=== PATIENT | female | born 1990 | race Caucasian/White ===

== ENCOUNTER 2017-05-03 10:09 | Emergency (ER) | payer OTHER, SELFPAY ==
[2017-05-03 10:10] VITALS: BP 116/50; PULSE 78; RESP 16; TEMP 36.3; O2SAT 98; BMI 34.8
--- NOTE | 2017-05-03 10:58 | ED.DCSUM_ITS ---
- ER Visit Summary Date of Service: 05/03/17 Chief Complaint: Sore throat History of Present Illness: The patient is a 27 F who has had a sore throat. Started yesterday. She states it hurts with swallowing. No nasal congestion. She has not had a cough. She denies any ear pain, fever. She took no medications for it at home. No history of strep in the past Physical Examination: Vital signs reviewed. HEENT exam reveals TMs are clear. She does have posterior oropharyngeal erythema. Neck is supple without lymphadenopathy. Heart is regular rate and rhythm. Lungs are clear. Neurologic exam normal Test Results: Strep test is negative Emergency Department Course and Treatment: Rapid strep negative. Patient will be discharged with Mucinex D. We will follow-up with PCP Treatment Plan: [] Disposition: Discharge Viral pharyngitis This note was generated with [employer] dictation software. It may contain incorrect words, spelling, and punctuation that were not noted in review of the chart prior to signing ED Disposition - Plan for ED Patient: Chief Complaint: Sore Throat Referrals: Care Physician,No Primary [Primary Care Provider] -
--- NOTE | 2017-05-03 11:19 | ED.DEP ---
ED Disposition - Plan for ED Patient: Disposition: Home or Assisted Living Chief Complaint: Sore Throat Instructions: ED Pharyngitis Viral Prescriptions: Guaifenesin/Pseudoephedrne HCl [Mucinex D ER 1,200-120 mg Tab] 1 ea PO BID #14 tab.er.[id number] Referrals: Care Physician,No Primary [Primary Care Provider] -
[2017-05-03 11:24] VITALS: PULSE 92; RESP 17; O2SAT 98
== END 2017-05-03 11:25 | disposition home or self-care (01) ==
PROVIDERS: Emergency Provider Emergency Medicine
DX: J02.8 Acute pharyngitis due to other specified organisms (principal)
CPT/HCPCS: 87880; 99282

== ENCOUNTER → 2017-09-12 16:04 | Outpatient (CLI) | payer OTHER, SELFPAY ==
[2017-09-13 08:25] LABS: Progesterone Level 5.39 ng/mL (See Comment)
== END ==
PROVIDERS: Visit Provider Obstetrics & Gynecology
DX: N91.2 Amenorrhea, unspecified (principal)
CPT/HCPCS: 36415; 84144

== ENCOUNTER 2018-02-14 10:39 | Observation (INO) | payer OTHER, SELFPAY ==
[2018-02-14 10:40] VITALS: BP 124/56; PULSE 82; RESP 16; TEMP 37; O2SAT 98; BMI 32.3
--- NOTE | 2018-02-14 11:01 | CT_ITS ---
STUDY: CT ABDOMEN AND PELVIS WITH CONTRAST REASON FOR EXAM: Female, 27 years old. Right flank and abdominal pain. RADIATION DOSAGE (If Supplied By Facility): CTDIvol = ( 11.02 ) mGy, DLP = ( 763.94 ) mGycm TECHNIQUE: Transaxial images were obtained from the dome of the diaphragm to the symphysis pubis without oral contrast. 100 ml of Isovue 300 contrast was administered. Sagittal and coronal images were reconstructed. Individualized dose optimization techniques were used for this CT. COMPARISON: None. FINDINGS: The visualized lung bases are unremarkable. The visualized portions of the heart are within normal limits. The liver is enlarged and diffusely inhomogeneous. There is a mixed low attenuating and nodular enhancing appearance of the liver see axial image 10 series 1002. There are surgical clips in the gallbladder fossa consistent with a prior cholecystectomy. Normal spleen. Normal pancreas. Normal bilateral adrenal glands. Normal right kidney. Normal left kidney. Normal visualized stomach. Normal small intestine. Normal colon. The appendix is visualized and appears normal. Normal abdominal aorta. Normal inferior vena cava. There are numerous large mesenteric lymph nodes. For example one measuring 2 x 1.4 cm on image #85 series 601. Normal urinary bladder. Uterus is of normal size. There is a endometrial fluid parents of the lower uterine segment and uterus. Normal abdominal wall. Normal osseous structures. CT/Abdomen/Pelvis WITH Contrast IMPRESSION: Abnormal enhancement of the liver with multiple areas of low attenuation and micro-nodular appearing hyperdensity. Consider underlying infiltrative hepatic process consider hepatitis. Recommend correlation with immune status. Potentially sarcoid could have this appearance. There are enlarged mesenteric lymph nodes which could be associated lymphoproliferative disease potentially mesenteric adenitis. Status post cholecystectomy No evidence of renal ureteral or bladder calculi or evidence of pyelonephritis. N.B. : The above information has been verbally conveyed by Doris Mcintosh MD to Marcos Law MD, on 02/14/2018 14:17:34 (ET). Electronically Signed: Doris Mcintosh MD at 14:10 EST Tel , Service support ,
--- NOTE | 2018-02-14 11:03 | ED.VISSUMM ---
- ER Visit Summary Date of Service: 02/14/18 Chief Complaint: [Abdominal pain] History of Present Illness: The patient is a 27 F [presents the emergency department complaint of abdominal pain that started yesterday. Patient describes the pain is right-sided and radiating to her back. Patient has had nausea. Patient states food tends to make the pain worse. Patient states that when she woke up this morning the pain was somewhat improved but after she ate breakfast had worsening pain. Patient denies any fever. Patient believes she felt hot yesterday. She denies urinary symptoms. Last menstrual period was 2 weeks ago. Patient has had her gallbladder removed.] Physical Examination: [HEENT-PERRLA, EOMI. Cranial nerves II through XII grossly intact. TMs clear. Mucous membranes moist. No adenopathy. Cardiovascular-regular rate and rhythm without murmur or ectopy Lungs-clear to auscultation, chest wall stable without crepitus or subcu emphysema Abdomen-normoactive bowel sounds, soft. Patient has tenderness palpation over right lower quadrant with some guarding. There is no rebound, rigidity, or perineal signs. Extremities-intact ?4, normal range of motion, normal pulses, atraumatic] Test Results: [CBC with differential obtained was normal. Chemistries were normal. LFTs were normal. Lipase was normal. Urinalysis was normal. HCG was negative. CT scan of the abdomen pelvis with IV and p.o. contrast ordered was read by radiology as abnormal enhancement of the liver with multiple areas of low-attenuation and micronodular appearing hyperdensities. Consider underlying infiltrative hepatic process consider hepatitis. Recommend correlation with immune status. Potentially sarcoid could have this appearance. There are enlarged mesenteric lymph nodes which could be associated with lymphoproliferative disease potentially mesenteric adenitis.] Emergency Department Course and Treatment: [She initially medicated with morphine and Zofran and then she continued to have pain and was medicated with Dilaudid. Patient had to be remedicated with Phenergan for continued nausea and vomiting.] Treatment Plan: [Admit for further workup and evaluation] Disposition: [Admit] Impression: [Intractable abdominal pain Intractable nausea vomiting Hepatomegaly Lymphadenitis] This note was generated with [employer] dictation software. It may contain incorrect words, spelling, and punctuation that were not noted in review of the chart prior to signing ED Disposition - Plan for ED Patient: Chief Complaint: Abd Pain Referrals: Care Physician,No Primary [Primary Care Provider] -
[2018-02-14] MEDS: 0.9% Normal Saline 1,000 ML 125 ML IV (11:11)
[2018-02-14 11:21] LABS: Bacteria 0 SEEN /hpf (None Seen); Mucous, Urine 0 SEEN /hpf (<or=2+); Red Blood Cells-Urine 0 SEEN /hpf (0-5)
[2018-02-14 11:28] LABS: Color, Urine Yellow (Yellow); Glucose, Dipstick Normal (Normal); Ketone-Dipstick 5 mg/dl (Negative); Leukocyte Esterase-Dipstick 25 /ul (Negative); Nitrite-Dipstick Negative (Negative); Occult Blood-Urine 10 /ul (Negative); Protein-Dipstick Negative (Negative); Urine Bilirubin Dipstick Negative (Negative); Urine Clarity Cloudy (Clear); Urine Urobilinogen Normal (Normal)
[2018-02-14 11:30] LABS: Absolute Lymphocyte Count 1.52 X10^3/ul (0.83-4.51); Absolute Neutrophil Count 3.9 X10^3/uL (2.0-7.7); Basophil# 0.01 X10^3/uL; Basophil% 0.2 % (0-1); Eosinophil# 0.13 X10^3/uL; Eosinophils% 2.1 % (0-5); Hematocrit 36.2 % (37-47); Hemoglobin 11.5 g/dl (12.0-15.0); Lymphocyte # 1.52 X10^3/ul (4.0); Lymphocyte % 24.7 % (19-41); Mean Corp Hgb Conc 31.8 g/gl (32-36); Mean Corpuscular Hgb 26.3 pg (27.0-32.0); Mean Corpuscular Volume 82.6 fL (81-99); Mean Platelet Vol. 10.2 fl (6.2-12.0); Monocyte# 0.57 X10^3/uL; Monocyte% 9.3 % (0-10); Neutrophil # 3.91 X10^3/uL (2.7-7.7); Neutrophil % 63.5 % (47-70); Platelet Count 323 K/mm3 (150-450); RBC Distribution Width CV 14.5 % (11.6-14.6); RBC Distribution Width SD 42.4 fl (35.1-43.9); Red Blood Count 4.38 M/mm3 (4.2-5.4); White Blood Count 6.2 K/mm3 (4.4-11.0)
[2018-02-14 11:35] LABS: POSITIVE COUNT NO; POSITIVE DIFFERENTIAL NO; POSITIVE MORPHOLOGY NO
[2018-02-14 11:39] LABS: ALB/GLOB Ratio 0.8 RATIO (0.9-2.4); AST(SGOT) 18 U/L (15-37); Alanine Aminotransfer ALT/SGPT 28 U/L (13-56); Albumin, Serum 3.4 g/dL (3.2-5.0); Alkaline Phosphatase 74 U/L (45-117); Anion Gap 4 (5-15); BUN 13 mg/dL (7-18); BUN/Creat Ratio 24.1 RATIO (10-20); Calcium,Total 8.3 mg/dL (8.5-10.1); Chloride 106 mmol/L (98-107); Creatinine, Serum 0.54 mg/dL (0.55-1.02); EST Glomerular Filtration Rate 146 mL/min (>60); Est Glom Filt Rate - Afr Amer 176 mL/min (>60); Estimated Creatinine Clearance 176.76 ml/min; Globulin 4.4 g/dL (2.2-4.2); Glucose 79 mg/dL (74-106); Lipase 73 U/L (73-393); Potassium 3.7 mmol/L (3.5-5.1); Protein, Total 7.8 g/dL (6.4-8.2); Sodium Level 139 mmol/L (136-145)
[2018-02-14 11:45] LABS: Squamous Epithelial Cells - UA 10-25 SEEN /hpf (5-10); White Blood Cells 0-5 SEEN /hpf (0-5)
[2018-02-14 11:54] LABS: Pregnancy, Serum, hCG Quali. NEGATIVE Negative (0-9 Nonpreg)
[2018-02-14] MEDS: Morphine 4 MG/ML Syringe IV (12:53)
[2018-02-14] MEDS: Ondansetron 4 MG/2 ML Vial IV ×2 (12:54→13:54)
[2018-02-14 13:01] VITALS: BP 117/61; PULSE 94; RESP 18; O2SAT 100
[2018-02-14] MEDS: HYDROmorphone 1 MG/ML Syringe IV (13:54)
--- NOTE | 2018-02-14 14:46 | NURSING ---
DR COURTNEY FOR DR LIMA
[2018-02-14] MEDS: proMETHazine 25 MG/ML Syringe 12.5 MG IV (14:47)
--- NOTE | 2018-02-14 14:47 | HP.PCM_ITS ---
Problem List (1) Abdominal pain Status: Acute (2) Nausea & vomiting Status: Acute History of Present Illness Date of Admission: 02/14/18 Chief Complaint: Abdominal pain, nausea, vomiting The patient is a 27 year old F with no significant past medical history who comes in with complaints of abdominal pain, that started a day before admission, sharp, radiates across the abdomen, worsened with food, with no relieving factors. Associated with nausea and vomiting x2. Denied any sick contact or eating any new foods. Denied any fever or chills. She admits to some loose stools which has been ongoing since her cholecystectomy. Denies any weight loss or weight gain. Vitals in the emergency room showed temperature of 90 8.6F, heart rate 82, blood pressure 124/56, respiratory 16, SPO2 98% on room air Admitting lab work showed RBC count of 6.2, Hb 11.5, platelets 323, BMP was unremarkable as well as liver function test. Abdomino/pelvic CT showed hepatomegaly with multiple areas of low-attenuation and macronodular appearing hypodensities as well as enlarged mesenteric lymph nodes. Past Medical History Allergies miconazole Allergy (Verified 02/14/18 11:18) Rash Home Medications: Ambulatory Orders Medication Instructions Recorded NK 02/14/18 Surgical History: cholecystectomy, - - Status post infected cyst removal in the coccygeal region Psychiatric History: No pertinent psych hx [employer] History: No pertinent [employer] history Lives: Alone Smoking Status: Never smoker Tobacco Use: Non-smoker Alcohol: Occasional Drugs: None - *Family History Maternal History Items: Unknown Paternal History Items: Heart Disease, - - history of blood clots Review of Systems Constitutional: Reports: Weakness. Denies: Anorexia, Chills, Fever, Malaise, Weight Change Eyes: Denies: Blurred vision, Cataracts, Conjunctivae Inflammation, Pain, Redness, Vision Change HEENT: Denies: Difficulty Swallowing, Head Aches, Hearing Changes, Sinus Congestion, Sinus Drainage, Sore Throat Cardiovascular: Denies: Chest Pain, Claudication, Orthopnea, Palpitations, Paroxysmal Noc. Dyspnea Respiratory: Denies: Cough, Hemoptysis, Shortness of breath at rest, Shortness of breath upon exertion, Sputum production Gastrointestinal: Reports: Abdominal Pain, Diarrhea - chronic, Nausea, Vomiting. Denies: Hematemesis, Hematochezia Genitourinary: Denies: Dysuria, Frequency Musculoskeletal: Denies: Joint Pain, Joint stiffness, Joint swelling, Joint Tenderness Skin: Denies: Pruritis, Rash, Wounds Neurological: Denies: Difficulty swallowing, Focal weakness, Numbness, Tingling Psychiatric: Denies: Anxiety, Depression, Homicidal Ideations, Suicidal Ideations Hematologic/ Lymphatic: Denies: Easy Bruising, Easy Bleeding VTE Information - Inpt Only VTE Present on Admission: No VTE Pharm Prophylaxis ordered?: Yes Patient Problems: Active and Suspected Problems Abdominal pain (Acute) Nausea & vomiting (Acute) - Physical Exam General: Alert, Oriented x3, Cooperative, No apparent distress HEENT: Atraumatic, PERRLA, EOMI, Normocephalic Oral: Dry Mucosa Neck: Supple, No JVD, Negative Carotid Bruits Lungs: Clear to auscultation, Normal air movement Cardiovascular: Regular rate, Regular Rhythm, Normal S1, Normal S2, No murmurs Abdomen: Bowel Sounds Present, Soft, Non Tender, Non-Distended, No Hepato- splenomegaly - not palpable Extremities: No edema, Capillary Refill Less than 3 Seconds Skin: No rashes, No breakdown Musculoskeletal: No Tenderness to Palpation of Joints or Extremities Lymphatic: No Cervical, Supraclavicular, or Inguinal Adenopathy Neurological: Cranial nerves II-XII grossly intact Psych/Mental Status: Normal Affect, Appropriate Vital Signs Temp Pulse Resp BP Pulse Ox 98.6 F 94 18 117/61 100 02/14/18 10:40 02/14/18 13:01 02/14/18 13:01 02/14/18 13:01 02/14/18 13:01 Oxygen Delivery Method Room Air Weight: 70.307 kg Body Mass Index (BMI) 32.3 Laboratory Tests Past 24 Hrs 02/14/18 02/14/18 02/14/18 11:10 11:10 11:10 WBC 6.2 RBC 4.38 Hgb 11.5 L Hct 36.2 L MCV 82.6 MCH 26.3 L MCHC 31.8 L RDW 14.5 RDW Differential 42.4 Plt Count 323 MPV 10.2 Immature Gran % (Auto) 0.200 Neut % (Auto) 63.5 Lymph % (Auto) 24.7 Stokes % (Auto) 9.3 Eos % (Auto) 2.1 Baso % (Auto) 0.2 Absolute Neuts (auto) 3.9 Absolute Lymphs (auto) 1.52 Total Counted Not Reportable Sodium 139 Potassium 3.7 Chloride 106 Carbon Dioxide 29.0 Anion Gap 4 L BUN 13 Creatinine 0.54 L Estim Creat Clear Calc 176.76 Est GFR (MDRD) Af Amer 176 Est GFR (MDRD) Non-Af 146 BUN/Creatinine Ratio 24.1 H Glucose 79 Calcium 8.3 L Total Bilirubin 0.40 AST 18 ALT 28 Alkaline Phosphatase 74 Total Protein 7.8 Albumin 3.4 Globulin 4.4 H Albumin/Globulin Ratio 0.8 L Lipase 73 Serum , Qual NEGATIVE Urine Color Urine Clarity Urine pH Ur Specific Basin Urine Protein Urine Glucose (UA) Urine Ketones Urine Occult Blood Urine Nitrite Urine Bilirubin Urine Urobilinogen Ur Leukocyte Esterase Urine RBC Urine WBC Ur Squamous Epith Cells Urine Bacteria Urine Mucus 02/14/18 11:10 WBC RBC Hgb Hct MCV MCH MCHC RDW RDW Differential Plt Count MPV Immature Gran % (Auto) Neut % (Auto) Lymph % (Auto) Stokes % (Auto) Eos % (Auto) Baso % (Auto) Absolute Neuts (auto) Absolute Lymphs (auto) Total Counted Sodium Potassium Chloride Carbon Dioxide Anion Gap BUN Creatinine Estim Creat Clear Calc Est GFR (MDRD) Af Amer Est GFR (MDRD) Non-Af BUN/Creatinine Ratio Glucose Calcium Total Bilirubin AST ALT Alkaline Phosphatase Total Protein Albumin Globulin Albumin/Globulin Ratio Lipase Serum , Qual Urine Color Yellow Urine Clarity Cloudy Urine pH 5.0 Ur Specific Basin 1.020 Urine Protein Negative Urine Glucose (UA) Normal Urine Ketones 5 H Urine Occult Blood 10 H Urine Nitrite Negative Urine Bilirubin Negative Urine Urobilinogen Normal Ur Leukocyte Esterase 25 H Urine RBC 0 SEEN Urine WBC 0-5 SEEN Ur Squamous Epith Cells 10-25 SEEN Urine Bacteria 0 SEEN Urine Mucus 0 SEEN Assessment/Plan All Active Problems Abdominal pain (Acute) Nausea & vomiting (Acute) 27 year old F with no significant past medical history who comes in with complaints of abdominal pain, that started a day before admission. 1. Abdominal pain, nausea or vomiting, likely secondary to viral etiology, no fever or chills, no leukocytosis, Plan: Admit to MedSurg, IV fluids, symptom control, as needed Zofran, pain control with IV Dilaudid 2. Hepatomegaly, no jaundice on exam, liver function test on admission, likely related to fatty liver, less likely to be of malignant etiology, Abdominal ultrasound, will check for acute hepatitis, lipid profile. 3. Obesity, BMI 32.4, diet and exercise is recommended 4. DVT prophylaxis with early ambulation Code Visit OBSV E&M: 09555 Initial observation care L3
--- NOTE | 2018-02-14 14:47 | NURSING ---
MED SURG ABD PAIN PAINTSIL
[2018-02-14 14:54] VITALS: BP 126/66; PULSE 107; RESP 16; O2SAT 95
[2018-02-14 15:10] VITALS: BMI 32.4
--- NOTE | 2018-02-14 15:42 | US_ITS ---
STUDY: ABDOMINAL ULTRASOUND - RIGHT UPPER QUADRANT REASON FOR VISIT: Female, 27 years old. Abdominal pain. TECHNIQUE: Ultrasound evaluation of the right upper quadrant was performed with real-time and static mann-scale imaging. TECHNICAL QUALITY: Adequate. COMPARISON: CT scan of the same date.. FINDINGS: Liver: The liver measures 17.8 cm. There is normal echogenicity of the liver. The bile ducts are within normal limits. There is hepatic color flow. The direction of portal flow is hepatopetal. There is no demonstrated mass lesion. Gallbladder: The patient is status post cholecystectomy. Common Bile Duct (C.B.D.): The common bile duct measures 4 mm. Pancreas: Normal size of the head, body and tail of the pancreas. There is normal echogenicity of the pancreas. There is no demonstrated pancreatic mass or cyst. Right Kidney: Normal size of the right kidney. The right kidney measures 10.2 cm. Normal renal cortex. The right cortex measures 1.2 cm. There is no demonstrated renal mass or cyst. There is no right hydronephrosis. US/Liver IMPRESSION: No definite abnormality status post cholecystectomy. Electronically Signed: Jassi Gan MD at 17:45 EST , Service support ,
[2018-02-14 15:49] VITALS: BMI 33.5
[2018-02-14 15:59] VITALS: BP 109/70; PULSE 110; RESP 20; TEMP 37.1; O2SAT 99
[2018-02-14 19:51] VITALS: BP 96/52; PULSE 87; RESP 18; TEMP 36.7; O2SAT 98
[2018-02-15 02:57] VITALS: BP 108/55; PULSE 80; RESP 18; TEMP 36.8; O2SAT 99
[2018-02-15 06:36] LABS: Absolute Lymphocyte Count 1.35 X10^3/ul (0.83-4.51); Basophil# 0.03 X10^3/uL; Basophil% 0.4 % (0-1); Eosinophil# 0.16 X10^3/uL; Eosinophils% 2.2 % (0-5); Hematocrit 34.5 % (37-47); Hemoglobin 11.1 g/dl (12.0-15.0); Lymphocyte # 1.35 X10^3/ul (4.0); Lymphocyte % 18.9 % (19-41); Mean Corp Hgb Conc 32.2 g/gl (32-36); Mean Corpuscular Volume 83.9 fL (81-99); Mean Platelet Vol. 10.2 fl (6.2-12.0); Monocyte% 8.4 % (0-10); Neutrophil # 4.98 X10^3/uL (2.7-7.7); Platelet Count 313 K/mm3 (150-450); RBC Distribution Width CV 14.9 % (11.6-14.6); RBC Distribution Width SD 44.5 fl (35.1-43.9); Red Blood Count 4.11 M/mm3 (4.2-5.4); White Blood Count 7.1 K/mm3 (4.4-11.0)
[2018-02-15 06:41] LABS: POSITIVE COUNT NO; POSITIVE DIFFERENTIAL NO; POSITIVE MORPHOLOGY NO
[2018-02-15 07:01] LABS: Cholesterol 100 mg/dL (200); High Density Lipoprotein 37 mg/dL; Triglycerides 105 mg/dL; Very Low Density Lipoprotein 21 mg/dL (5-40)
[2018-02-15 08:18] VITALS: BP 106/65; PULSE 79; RESP 16; TEMP 36.6; O2SAT 99
--- NOTE | 2018-02-15 10:01 | DCINST_ITS ---
- Discharge Diagnoses Current Active Problems: Current Active and Chronic Problems Abdominal pain (Acute) Nausea & vomiting (Acute) You will use the following diet at home:: Regular Your food should be the consistency of: Regular Discharge Activity: Return to Normal Activity Weight Bearing Status: Full weight bearing Call your doctor if you observe: Fever of 101 or Higher, Shortness of breath, Dizziness, Fainting spells, Chest pain, Increased palpitations (irregular heartbeat), Uncontrolled pain Allergies/Adverse Reactions: Allergies miconazole Allergy (Verified 02/14/18 11:18) Rash Medications to take at Discharge NK 02/14/18 Primary Care Physician: Care Physician,No Primary [Primary Care Provider] - Please follow up with your Primary Care Physician in: 1 week. Test Results: Test results from this visit will be discussed in further detail at your follow- up appointment, if applicable.
--- NOTE | 2018-02-15 11:28 | PCM.DC.SUM ---
Discharge Date and Diagnosis - Problem List Patient Problems: Active and Suspected Problems Abdominal pain (Acute) Nausea & vomiting (Acute) Date of Admission: 02/14/18 Date of Discharge: 02/15/18 - Primary Discharge Diagnosis Active and Suspected Problems #1 abdominal pain, nausea, vomiting: Attributed to probable viral etiology. #2 micronodular lesions in the liver, unclear etiology. Hospital Course and Treatment Imaging Results: Clinical Impression(s) from Imaging Studies Abdomen/Pelvis CT 02/14/18 11:01 IMPRESSION: Abnormal enhancement of the liver with multiple areas of low attenuation and micro-nodular appearing hyperdensity. Consider underlying infiltrative hepatic process consider hepatitis. Recommend correlation with immune status. Potentially sarcoid could have this appearance. There are enlarged mesenteric lymph nodes which could be associated lymphoproliferative disease potentially mesenteric adenitis. Status post cholecystectomy No evidence of renal ureteral or bladder calculi or evidence of pyelonephritis. N.B. : The above information has been verbally conveyed by Doris Mcintosh MD to Marcos Law MD, on 02/14/2018 14:17:34 (ET). Electronically Signed: Doris Mcintosh MD at 14:10 EST Tel , Service support , Liver Ultrasound 02/14/18 15:42 IMPRESSION: No definite abnormality status post cholecystectomy. Electronically Signed: Jassi Gan MD at 17:45 EST , Service support , Operations: None Procedures: None Summary of Care Provided: The patient is a 27 year old F [] Patient seen and examined on the day of discharge and appeared to be stable to be discharged home. Her abdominal pain improved, she has no more nausea vomiting. She denies constipation or diarrhea. She denies fever chills. She denied blood transfusion in the past. She denied IV drug use. Her vital signs are stable. This is a 27 years old female patient admitted because of abdominal pain with nausea and vomiting and her pain was mainly on the left side goes to her back on the right side. There was no clear etiology identified for this pain. It is attributed to probable viral etiology likely gastroenteritis. She mentioned that her boyfriend was sick a few days ago with upset stomach but no diarrhea. Patient denied fever or chills. She denies constipation or diarrhea. She denied blood transfusion and she denied history of IV drug use. Her routine blood work was unremarkable. Her LFT and lipase were normal. Her serum test was negative. Urinalysis revealed no evidence of acute cystitis. CT scan abdomen and pelvis with contrast revealed abnormal enhancement of the liver with multiple areas of low-attenuation and micronodular appearing hyperdensities as well as enlarged mesenteric lymph nodes. Patient had a history of cholecystectomy. Surprisingly her LFT was normal as well as lipase. There was no clear etiology identified for this micronodular lesions in the liver. Liver ultrasound revealed normal echogenicity of the liver, normal bile ducts, no mass lesions, status post cholecystectomy, CBD diameter is 4 mm. Infectious hepatitis screen was sent and was pending at the time of discharge. I explained to the patient that the findings on the CT scan abdomen was incidental and there is no obvious etiology for it. I informed the patient that her ultrasound liver was normal and her liver texture was normal as well but the CT scan abdomen showed different findings. I explained to the patient that hepatitis can cause such an appearance but she denies history of hepatitis, denies blood transfusion or IV drug use. I recommended that patient can be discharged home today and follow-up with her PCP in 1 week regarding the results of the infectious hepatitis panel which will result in few days. Patient discharged home in a stable medical condition, discharged without any medications, recommended to use [id number] Tylenol or Aleve for pain as needed, highly recommended to follow-up with PCP in 1 week and then inquire about the results of the hepatitis panel. Patient Problems: Active and Suspected Problems Abdominal pain (Acute) Nausea & vomiting (Acute) - Physical Exam General: Alert, Oriented x3, Cooperative, No apparent distress HEENT: Atraumatic, PERRLA, EOMI, Normocephalic Oral: Moist Mucosa, No Gingival or Mucosal Lesions/ Ulcerations Neck: Supple, No JVD, Negative Carotid Bruits, Trachea Midline, Thyroid Normal Size and Texture Lungs: Clear to auscultation, Normal air movement, No rhonchi, No wheeze, No rales Cardiovascular: Regular rate, Regular Rhythm, Normal S1, Normal S2, PMI Normal Abdomen: Bowel Sounds Present, Soft, Non Tender, Non-Distended, No Hepato-splenomegaly Extremities: No clubbing, No cyanosis, No edema Skin: No rashes, No breakdown Lymphatic: No Cervical, Supraclavicular, or Inguinal Adenopathy Neurological: Cranial nerves II-XII grossly intact, Neuro grossly intact Psych/Mental Status: Normal Affect, Appropriate, Alert and oriented to time, place, person, mood and affect Vital Signs Temp Pulse Resp BP Pulse Ox 97.9 F 79 16 106/65 99 02/15/18 08:18 02/15/18 08:18 02/15/18 08:18 02/15/18 08:18 02/15/18 08:18 Oxygen Delivery Method Room Air Weight: 160 lb 7.944 oz Body Mass Index (BMI) 33.5 Intake and Output for Last 24 Hours 02/13/18 02/14/18 02/15/18 23:59 23:59 23:59 Intake Total 1522 / 1522 Output Total 250 / 250 Balance 1272 / 1272 Laboratory Tests Past 24 Hrs 02/14/18 02/14/18 02/14/18 11:10 11:10 11:10 WBC 6.2 RBC 4.38 Hgb 11.5 L Hct 36.2 L MCV 82.6 MCH 26.3 L MCHC 31.8 L RDW 14.5 RDW Differential 42.4 Plt Count 323 MPV 10.2 Immature Gran % (Auto) 0.200 Neut % (Auto) 63.5 Lymph % (Auto) 24.7 [place] % (Auto) 9.3 Eos % (Auto) 2.1 Baso % (Auto) 0.2 Absolute Neuts (auto) 3.9 Absolute Lymphs (auto) 1.52 Total Counted Not Reportable Sodium 139 Potassium 3.7 Chloride 106 Carbon Dioxide 29.0 Anion Gap 4 L BUN 13 Creatinine 0.54 L Estim Creat Clear Calc 176.76 Est GFR (MDRD) Af Amer 176 Est GFR (MDRD) Non-Af 146 BUN/Creatinine Ratio 24.1 H Glucose 79 Calcium 8.3 L Total Bilirubin 0.40 AST 18 ALT 28 Alkaline Phosphatase 74 Total Protein 7.8 Albumin 3.4 Globulin 4.4 H Albumin/Globulin Ratio 0.8 L Triglycerides Cholesterol LDL Cholesterol VLDL Cholesterol HDL Cholesterol Lipase 73 Serum , Qual NEGATIVE Urine Color Urine Clarity Urine pH Ur Specific [place] Urine Protein Urine Glucose (UA) Urine Ketones Urine Occult Blood Urine Nitrite Urine Bilirubin Urine Urobilinogen Ur Leukocyte Esterase Urine RBC Urine WBC Ur Squamous Epith Cells Urine Bacteria Urine Mucus Hepatitis A IgM Ab Hepatitis A Ab Total Hep Bs Antigen Hep B Core Total Ab Hep B Core IgM Ab 02/14/18 02/14/18 02/15/18 11:10 11:10 06:15 WBC 7.1 RBC 4.11 L Hgb 11.1 L Hct 34.5 L MCV 83.9 MCH 27.0 MCHC 32.2 RDW 14.9 H RDW Differential 44.5 H Plt Count 313 MPV 10.2 Immature Gran % (Auto) 0.100 Neut % (Auto) 70.0 Lymph % (Auto) 18.9 L [place] % (Auto) 8.4 Eos % (Auto) 2.2 Baso % (Auto) 0.4 Absolute Neuts (auto) 5.0 Absolute Lymphs (auto) 1.35 Total Counted Not Reportable Sodium Potassium Chloride Carbon Dioxide Anion Gap BUN Creatinine Estim Creat Clear Calc Est GFR (MDRD) Af Amer Est GFR (MDRD) Non-Af BUN/Creatinine Ratio Glucose Calcium Total Bilirubin AST ALT Alkaline Phosphatase Total Protein Albumin Globulin Albumin/Globulin Ratio Triglycerides Cholesterol LDL Cholesterol VLDL Cholesterol HDL Cholesterol Lipase Serum , Qual Urine Color Yellow Urine Clarity Cloudy Urine pH 5.0 Ur Specific [place] 1.020 Urine Protein Negative Urine Glucose (UA) Normal Urine Ketones 5 H Urine Occult Blood 10 H Urine Nitrite Negative Urine Bilirubin Negative Urine Urobilinogen Normal Ur Leukocyte Esterase 25 H Urine RBC 0 SEEN Urine WBC 0-5 SEEN Ur Squamous Epith Cells 10-25 SEEN Urine Bacteria 0 SEEN Urine Mucus 0 SEEN Hepatitis A IgM Ab Pending Hepatitis A Ab Total Pending Hep Bs Antigen Pending Hep B Core Total Ab Pending Hep B Core IgM Ab Pending 02/15/18 06:15 WBC RBC Hgb Hct MCV MCH MCHC RDW RDW Differential Plt Count MPV Immature Gran % (Auto) Neut % (Auto) Lymph % (Auto) [place] % (Auto) Eos % (Auto) Baso % (Auto) Absolute Neuts (auto) Absolute Lymphs (auto) Total Counted Sodium Potassium Chloride Carbon Dioxide Anion Gap BUN Creatinine Estim Creat Clear Calc Est GFR (MDRD) Af Amer Est GFR (MDRD) Non-Af BUN/Creatinine Ratio Glucose Calcium Total Bilirubin AST ALT Alkaline Phosphatase Total Protein Albumin Globulin Albumin/Globulin Ratio Triglycerides 105 Cholesterol 100 LDL Cholesterol 42 VLDL Cholesterol 21 HDL Cholesterol 37 L Lipase Serum , Qual Urine Color Urine Clarity Urine pH Ur Specific [place] Urine Protein Urine Glucose (UA) Urine Ketones Urine Occult Blood Urine Nitrite Urine Bilirubin Urine Urobilinogen Ur Leukocyte Esterase Urine RBC Urine WBC Ur Squamous Epith Cells Urine Bacteria Urine Mucus Hepatitis A IgM Ab Hepatitis A Ab Total Hep Bs Antigen Hep B Core Total Ab Hep B Core IgM Ab Discharge Activity: Return to Normal Activity Weight Bearing Status: Full weight bearing Call your doctor if you observe: Fever of 101 or Higher, Shortness of breath, Dizziness, Fainting spells, Chest pain, Increased palpitations (irregular heartbeat), Uncontrolled pain Home Medications: Medications to take at Discharge NK 02/14/18 Primary Care Physician: Care Physician,No Primary [Primary Care Provider] - Please follow up with your Primary Care Physician in: 1 week. Disposition: Home Minutes spent on discharge:: 24 Patient Condition:: Stable Medical Necessity - Tobacco Use Smoking Status: Never smoker Tobacco Use: Non-smoker Meaningful Use Info Meaningful Use Diagnoses (Choose all that apply): None applicable Code Visit OBSV E&M: 12724 Observation care discharge
--- NOTE | 2018-02-15 11:37 | DS.PCM_ITS ---
Discharge Date and Diagnosis - Problem List Patient Problems: Active and Suspected Problems Abdominal pain (Acute) Nausea & vomiting (Acute) Date of Admission: 02/14/18 Date of Discharge: 02/15/18 - Primary Discharge Diagnosis Active and Suspected Problems #1 abdominal pain, nausea, vomiting: Attributed to probable viral etiology. #2 micronodular lesions in the liver, unclear etiology. Hospital Course and Treatment Imaging Results: Clinical Impression(s) from Imaging Studies Abdomen/Pelvis CT 02/14/18 11:01 IMPRESSION: Abnormal enhancement of the liver with multiple areas of low attenuation and micro-nodular appearing hyperdensity. Consider underlying infiltrative hepatic process consider hepatitis. Recommend correlation with immune status. Potentially sarcoid could have this appearance. There are enlarged mesenteric lymph nodes which could be associated lymphoproliferative disease potentially mesenteric adenitis. Status post cholecystectomy No evidence of renal ureteral or bladder calculi or evidence of pyelonephritis. N.B. : The above information has been verbally conveyed by Doris Mcintosh MD to Marcos Law MD, on 02/14/2018 14:17:34 (ET). Electronically Signed: Doris Mcintosh MD at 14:10 EST Tel , Service support , Liver Ultrasound 02/14/18 15:42 IMPRESSION: No definite abnormality status post cholecystectomy. Electronically Signed: Jassi Gan MD at 17:45 EST , Service support , Operations: None Procedures: None Summary of Care Provided: The patient is a 27 year old F [] Patient seen and examined on the day of discharge and appeared to be stable to be discharged home. Her abdominal pain improved, she has no more nausea vomiting. She denies constipation or diarrhea. She denies fever chills. She denied blood transfusion in the past. She denied IV drug use. Her vital signs are stable. This is a 27 years old female patient admitted because of abdominal pain with nausea and vomiting and her pain was mainly on the left side goes to her back on the right side. There was no clear etiology identified for this pain. It is attributed to probable viral etiology likely gastroenteritis. She mentioned that her boyfriend was sick a few days ago with upset stomach but no diarrhea. Patient denied fever or chills. She denies constipation or diarrhea. She denied blood transfusion and she denied history of IV drug use. Her routine blood work was unremarkable. Her LFT and lipase were normal. Her serum test was negative. Urinalysis revealed no evidence of acute cystitis. CT scan abdomen and pelvis with contrast revealed abnormal enhancement of the liver with multiple areas of low-attenuation and micronodular appearing hyperdensities as well as enlarged mesenteric lymph nodes. Patient had a history of cholecystectomy. Surprisingly her LFT was normal as well as lipase. There was no clear etiology identified for this micronodular lesions in the hair er. Liver ultrasound revealed normal echogenicity of the liver, normal bile ducts, no mass lesions, status post cholecystectomy, CBD diameter is 4 mm. Infectious hepatitis screen was sent and was pending at the time of discharge. I explained to the patient that the findings on the CT scan abdomen was incidental and there is no obvious etiology for it. I informed the patient that her ultrasound liver was normal and her liver texture was normal as well but the CT scan abdomen showed different findings. I explained to the patient that hepatitis can cause such an appearance but she denies history of hepatitis, denies blood transfusion or IV drug use. I recommended that patient can be discharged home today and follow-up with her PCP in 1 week regarding the results of the infectious hepatitis panel which will result in few days. Patient discharged home in a stable medical condition, discharged without any medications, recommended to use [id number] Tylenol or Aleve for pain as ne eded, highly recommended to follow-up with PCP in 1 week and then inquire about the results of the hepatitis panel. Patient Problems: Active and Suspected Problems Abdominal pain (Acute) Nausea & vomiting (Acute) - Physical Exam General: Alert, Oriented x3, Cooperative, No apparent distress HEENT: Atraumatic, PERRLA, EOMI, Normocephalic Oral: Moist Mucosa, No Gingival or Mucosal Lesions/ Ulcerations Neck: Supple, No JVD, Negative Carotid Bruits, Trachea Midline, Thyroid Normal Size and Texture Lungs: Clear to auscultation, Normal air movement, No rhonchi, No wheeze, No rales Cardiovascular: Regular rate, Regular Rhythm, Normal S1, Normal S2, PMI Normal Abdomen: Bowel Sounds Present, Soft, Non Tender, Non-Distended, No Hepato- splenomegaly Extremities: No clubbing, No cyanosis, No edema Skin: No rashes, No breakdown Lymphatic: No Cervical, Supraclavicular, or Inguinal Adenopathy Neurological: Cranial nerves II-XII grossly intact, Neuro grossly intact Psych/Mental Status: Normal Affect, Appropriate, Alert and oriented to time, place, person, mood and affect Vital Signs Temp Pulse Resp BP Pulse Ox 97.9 F 79 16 106/65 99 02/15/18 08:18 02/15/18 08:18 02/15/18 08:18 02/15/18 08:18 02/15/18 08:18 Oxygen Delivery Method Room Air Weight: 160 lb 7.944 oz Body Mass Index (BMI) 33.5 Intake and Output for Last 24 Hours 02/13/18 02/14/18 02/15/18 23:59 23:59 23:59 Intake Total 1522 / 1522 Output Total 250 / 250 Balance 1272 / 1272 Laboratory Tests Past 24 Hrs 02/14/18 02/14/18 02/14/18 11:10 11:10 11:10 WBC 6.2 RBC 4.38 Hgb 11.5 L Hct 36.2 L MCV 82.6 MCH 26.3 L MCHC 31.8 L RDW 14.5 RDW Differential 42.4 Plt Count 323 MPV 10.2 Immature Gran % (Auto) 0.200 Neut % (Auto) 63.5 Lymph % (Auto) 24.7 [place] % (Auto) 9.3 Eos % (Auto) 2.1 Baso % (Auto) 0.2 Absolute Neuts (auto) 3.9 Absolute Lymphs (auto) 1.52 Total Counted Not Reportable Sodium 139 Potassium 3.7 Chloride 106 Carbon Dioxide 29.0 Anion Gap 4 L BUN 13 Creatinine 0.54 L Estim Creat Clear Calc 176.76 Est GFR (MDRD) Af Amer 176 Est GFR (MDRD) Non-Af 146 BUN/Creatinine Ratio 24.1 H Glucose 79 Calcium 8.3 L Total Bilirubin 0.40 AST 18 ALT 28 Alkaline Phosphatase 74 Total Protein 7.8 Albumin 3.4 Globulin 4.4 H Albumin/Globulin Ratio 0.8 L Triglycerides Cholesterol LDL Cholesterol VLDL Cholesterol HDL Cholesterol Lipase 73 Serum , Qual NEGATIVE Urine Color Urine Clarity Urine pH Ur Specific [place] Urine Protein Urine Glucose (UA) Urine Ketones Urine Occult Blood Urine Nitrite Urine Bilirubin Urine Urobilinogen Ur Leukocyte Esterase Urine RBC Urine WBC Ur Squamous Epith Cells Urine Bacteria Urine Mucus Hepatitis A IgM Ab Hepatitis A Ab Total Hep Bs Antigen Hep B Core Total Ab Hep B Core IgM Ab 02/14/18 02/14/18 02/15/18 11:10 11:10 06:15 WBC 7.1 RBC 4.11 L Hgb 11.1 L Hct 34.5 L MCV 83.9 MCH 27.0 MCHC 32.2 RDW 14.9 H RDW Differential 44.5 H Plt Count 313 MPV 10.2 Immature Gran % (Auto) 0.100 Neut % (Auto) 70.0 Lymph % (Auto) 18.9 L [place] % (Auto) 8.4 Eos % (Auto) 2.2 Baso % (Auto) 0.4 Absolute Neuts (auto) 5.0 Absolute Lymphs (auto) 1.35 Total Counted Not Reportable Sodium Potassium Chloride Carbon Dioxide Anion Gap BUN Creatinine Estim Creat Clear Calc Est GFR (MDRD) Af Amer Est GFR (MDRD) Non-Af BUN/Creatinine Ratio Glucose Calcium Total Bilirubin AST ALT Alkaline Phosphatase Total Protein Albumin Globulin Albumin/Globulin Ratio Triglycerides Cholesterol LDL Cholesterol VLDL Cholesterol HDL Cholesterol Lipase Serum , Qual Urine Color Yellow Urine Clarity Cloudy Urine pH 5.0 Ur Specific [place] 1.020 Urine Protein Negative Urine Glucose (UA) Normal Urine Ketones 5 H Urine Occult Blood 10 H Urine Nitrite Negative Urine Bilirubin Negative Urine Urobilinogen Normal Ur Leukocyte Esterase 25 H Urine RBC 0 SEEN Urine WBC 0-5 SEEN Ur Squamous Epith Cells 10-25 SEEN Urine Bacteria 0 SEEN Urine Mucus 0 SEEN Hepatitis A IgM Ab Pending Hepatitis A Ab Total Pending Hep Bs Antigen Pending Hep B Core Total Ab Pending Hep B Core IgM Ab Pending 02/15/18 06:15 WBC RBC Hgb Hct MCV MCH MCHC RDW RDW Differential Plt Count MPV Immature Gran % (Auto) Neut % (Auto) Lymph % (Auto) [place] % (Auto) Eos % (Auto) Baso % (Auto) Absolute Neuts (auto) Absolute Lymphs (auto) Total Counted Sodium Potassium Chloride Carbon Dioxide Anion Gap BUN Creatinine Estim Creat Clear Calc Est GFR (MDRD) Af Amer Est GFR (MDRD) Non-Af BUN/Creatinine Ratio Glucose Calcium Total Bilirubin AST ALT Alkaline Phosphatase Total Protein Albumin Globulin Albumin/Globulin Ratio Triglycerides 105 Cholesterol 100 LDL Cholesterol 42 VLDL Cholesterol 21 HDL Cholesterol 37 L Lipase Serum , Qual Urine Color Urine Clarity Urine pH Ur Specific [place] Urine Protein Urine Glucose (UA) Urine Ketones Urine Occult Blood Urine Nitrite Urine Bilirubin Urine Urobilinogen Ur Leukocyte Esterase Urine RBC Urine WBC Ur Squamous Epith Cells Urine Bacteria Urine Mucus Hepatitis A IgM Ab Hepatitis A Ab Total Hep Bs Antigen Hep B Core Total Ab Hep B Core IgM Ab Discharge Activity: Return to Normal Activity Weight Bearing Status: Full weight bearing Call your doctor if you observe: Fever of 101 or Higher, Shortness of breath, Dizziness, Fainting spells, Chest pain, Increased palpitations (irregular heartbeat), Uncontrolled pain Home Medications: Medications to take at Discharge NK 02/14/18 Primary Care Physician: Care Physician,No Primary [Primary Care Provider] - Please follow up with your Primary Care Physician in: 1 week. Disposition: Home Minutes spent on discharge:: 24 Patient Condition:: Stable Medical Necessity - Tobacco Use Smoking Status: Never smoker Tobacco Use: Non-smoker Meaningful Use Info Meaningful Use Diagnoses (Choose all that apply): None applicable Code Visit OBSV E&M: 09176 Observation care discharge
[2018-02-16 12:06] LABS: HEPATITIS B SURFACE AG Negative (Negative); Hepatitis A AB, Total Positive (Negative); Hepatitis A IgM Antibody Negative (Negative); Hepatitis B Core AB IgM Negative (Negative); Hepatitis B Core Ab Total Negative (Negative); Hepatitis C Ab <0.1 s/co ratio (0.0-0.9)
[2018-02-17 11:37] LABS: Hep B Surface Antibodies Reactive (.)
== END 2018-02-15 11:45 | disposition home or self-care (01) ==
LOC: ED 11:58 → MS3 15:29
PROVIDERS: Admitting Provider Internal Medicine; Emergency Provider Emergency Medicine; Visit Provider Hospitalist
DX: R10.9 Unspecified abdominal pain (principal); R11.2 Nausea with vomiting, unspecified; K76.9 Liver disease, unspecified; Z90.49 Acquired absence of other specified parts of digestive tract; E66.9 Obesity, unspecified; Z71.3 Dietary counseling and surveillance; Z68.33 Body mass index [BMI] 33.0-33.9, adult
CPT/HCPCS: 36415; 74177; 76705; 80053; 80061; 81001; 83690; 84703; 85025; 86704; 86705; 86706; 86708; 86709; 86803; 87340; 96361; 96365; 96366; 96375; 96376; 99218; 99282; J7030; Q9967; A4216; G0378; J2405; J3490

== ENCOUNTER 2018-04-08 18:21 | Emergency (ER) | payer OTHER, SELFPAY ==
[2018-04-08 18:22] VITALS: BP 145/80; PULSE 99; RESP 99; TEMP 36.4; O2SAT 98; BMI 31.1
[2018-04-08 18:26] VITALS: BP 145/80; PULSE 99; RESP 16; TEMP 36.4; O2SAT 98; BMI 31.1
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
--- NOTE | 2018-04-08 19:45 | ED.VISSUMM ---
- ER Visit Summary Date of Service: 04/08/18 Chief Complaint: [Depression] History of Present Illness: The patient is a 27 F [resents to the emergency department with complaint of feeling depressed today because her boyfriend broke up with her. Patient states that he just broke up with her today and she got angry and told him that she was going to kill herself out of anger. Patient states that the boyfriend then called the police who asked her to come in and get evaluated so she could talk to a counselor. Patient was not pink slipped. Patient states that she has no intention on harming herself and she simply said it out of anger. Patient does have a history of some underlying depression but is not currently medicated. Patient is never attempted to harm herself. Patient never been admitted to a psychiatric facility. She denies any recent illness.] Patient denies any auditory or visual hallucinations. Patient denies feeling homicidal. Patient lives alone. She does not have any children. Physical Examination: HEENT-PERRLA, EOMI. Cranial nerves II through XII grossly intact. TMs clear. Mucous membranes moist. No adenopathy. Cardiovascular-regular rate and rhythm without murmur or ectopy Lungs-clear to auscultation, chest wall stable without crepitus or subcu emphysema Abdomen-normoactive bowel sounds, soft, nontender, no rebound or rigidity, no peritoneal signs. Extremities-intact ?4, normal range of motion, normal pulses, atraumatic] Test Results: None indicated [] Emergency Department Course and Treatment: [Patient was seen by our public health social worker and she was given some resources to follow-up with as an outpatient. At this point patient can contract for safety and feels comfortable going home. She has no intention on harming herself.] Treatment Plan: [Discharged home in stable condition] Disposition: [Discharged home in stable condition] Impression: [Depression] This note was generated with [employer] dictation software. It may contain incorrect words, spelling, and punctuation that were not noted in review of the chart prior to signing ED Disposition - Plan for ED Patient: Chief Complaint: Depression Referrals: Laureano Chaparro MD [Primary Care Provider] -
--- NOTE | 2018-04-08 19:48 | ED.DCSUM_ITS ---
- ER Visit Summary Date of Service: 04/08/18 Chief Complaint: [Depression] History of Present Illness: The patient is a 27 F [resents to the emergency department with complaint of feeling depressed today because her boyfriend broke up with her. Patient states that he just broke up with her today and she got angry and told him that she was going to kill herself out of anger. Patient states that the boyfriend then called the police who asked her to come in and get evaluated so she could talk to a counselor. Patient was not pink slipped. Patient states that she has no intention on harming herself and she simply said it out of anger. Patient does have a history of some underlying depression but is not currently medicated. Patient is never attempted to harm herself. Patient never been admitted to a psychiatric facility. She denies any recent illness.] Patient denies any auditory or visual hallucinations. Patient denies feeling homicidal. Patient lives alone. She does not have any children. Physical Examination: HEENT-PERRLA, EOMI. Cranial nerves II through XII grossly intact. TMs clear. Mucous membranes moist. No adenopathy. Cardiovascular-regular rate and rhythm without murmur or ectopy Lungs-clear to auscultation, chest wall stable without crepitus or subcu emphysema Abdomen-normoactive bowel sounds, soft, nontender, no rebound or rigidity, no peritoneal signs. Extremities-intact ?4, normal range of motion, normal pulses, atraumatic] Test Results: None indicated [] Emergency Department Course and Treatment: [Patient was seen by our director social and she was given some resources to follow-up with as an outpatient. At this point patient can contract for safety and feels comfortable going home. She has no intention on harming herself.] Treatment Plan: [Discharged home in stable condition] Disposition: [Discharged home in stable condition] Impression: [Depression] This note was generated with [employer] dictation software. It may contain incorrect words, spelling, and punctuation that were not noted in review of the chart prior to signing ED Disposition - Plan for ED Patient: Chief Complaint: Depression Referrals: Laureano Chaparro MD [Primary Care Provider] -
--- NOTE | 2018-04-08 19:48 | ED.DEP ---
ED Disposition - Plan for ED Patient: Chief Complaint: Depression Instructions: ED Depression, ED Contract, No Harm Referrals: Laureano Chaparro MD [Primary Care Provider] - 3-5 Days
--- NOTE | 2018-04-09 12:30 | CM.ED ---
SOCIAL WORK NOTE CALL TO THE [facility] TO SET UP NEW PATIENT APPOINTMENT. APPOINTMENT SCHEDULED FOR 05/05/18 AT 3:30P. THIS WAS EARLIEST APPOINTMENT AVAILABLE PATIENT NEEDING APPOINTMENT AROUND 4PM DUE TO WORK SCHEDULE. CALL TO PATIENT TO UPDATE ON THE ABOVE. LEFT MESSAGE WITH THIS WORKER'S CALL BACK INFORMATION. AWAITING CALL BACK AT THIS TIME. JLUIS QUINTANILLA, SAMPLE TESTER, MANAGEMENT MANAGER.
--- NOTE | 2018-04-09 15:54 | CM.ED ---
SOCIAL WORK NOTE RECEIVED CALL BACK FROM PATIENT. UPDATED ON APPOINTMENT TIME AND DATE. PATIENT IN AGREEMENT WITH THIS TIME/DATE AND STATES DOES NOT FEEL SHE NEEDS TO BE ESTABLISHED WITH COUNSELING SERVICES SOONER. PATIENT PROVIDED WITH CONTACT INFORMATION FOR THE [facility]SELING CENTER IF NEEDED. NO OTHER QUESTIONS OR CONCERNS AT THIS TIME. JLUIS QUINTANILLA, POWER PLANT MANAGER, PAIN MANAGEMENT PHYSICIAN
== END 2018-04-08 19:56 | disposition home or self-care (01) ==
PROVIDERS: Emergency Provider Emergency Medicine; Family Provider Family Medicine; PCP Family Medicine
DX: F32.9 Major depressive disorder, single episode, unspecified (principal)
CPT/HCPCS: 99283

== ENCOUNTER → 2018-04-14 09:01 | Outpatient (CLI) | payer OTHER, SELFPAY ==
[2018-04-08 18:26] VITALS: BMI 31.1
--- NOTE | 2018-04-14 09:08 | RAD_ITS ---
STUDY: AIR-CONTRAST UPPER GI SERIES AND SMALL BOWEL FOLLOW-THROUGH EXAMINATION. REASON FOR EXAM: Female, 28 years old. One-month history of abdominal pain. FLUOROSCOPY TIME (if supplied): (1:15) minutes/seconds. 28 images were obtained. TECHNIQUE: The patient ingested barium. Multiple images of the esophagus, stomach and duodenum were obtained. COMPARISON: None. FINDINGS: There is a small sliding hiatal hernia with gastroesophageal reflux. The stomach and duodenum are unremarkable. There is no evidence of ulceration or mass lesion. A small bowel follow-through examination was performed. The transit time is normal. There is no evidence of intrinsic or extrinsic small bowel disease. The terminal ileum is unremarkable. RAD/Upper GI/w Small Bowel IMPRESSION: Small sliding hiatal hernia with gastroesophageal reflux. Electronically Signed: Christophe Rojas MD at 10:39 EST Tel [phone], Service support ,
== END ==
LOC: RAD 09:01
PROVIDERS: Family Provider Family Medicine; PCP Family Medicine; Referring Provider Nurse Practitioner Adult Health; Visit Provider Nurse Practitioner Adult Health
DX: R11.0 Nausea (principal); R10.11 Right upper quadrant pain; R19.5 Other fecal abnormalities
CPT/HCPCS: 74249

== ENCOUNTER 2018-05-04 08:40 | Emergency (ER) | payer OTHER, SELFPAY ==
[2018-05-04 08:41] VITALS: BP 111/74; PULSE 88; RESP 16; TEMP 36.2; O2SAT 99; BMI 30.7
--- NOTE | 2018-05-04 09:14 | ED.VISSUMM ---
- ER Visit Summary Date of Service: 05/04/18 Chief Complaint: [] Left buttock discomfort for a few days history of pilonidal cyst resection 2009 History of Present Illness: The patient is a 28 F [] she is healthy she indicates in 2009 she had a pilonidal cyst resection out of town facility, she indicates for a few days she has noticed some irritation to the left buttock region of the cyst she was seen in urgent care center yesterday started Augmentin pain management and she is scheduled to see Dr. Peter this week of surgery, she indicated she wanted the area reevaluated she is taken 1 Augmentin tablet no nausea vomiting fever no trouble with bowel bladder habits denies no history of staff for immunocompromise and conditions Physical Examination: [] Vital signs are normal General, no distress resting comfortably HEENT is generally unremarkable The neck is supple no adenopathy Cardiovascular, regular rate and rhythm Lungs, clear bilateral Abdomen, soft nontender, the rectal and buttock area there is a long incision related to prior pilonidal cyst resection at the base of this incision she complains of a nodularity or area of irritation, the entire incision and scar is nodular but there is no warmth no crepitance no subcu air no signs of active infection or drainage this area does not involve her rectum anyway Extremities, no clubbing cyanosis or edema Neurologic, awake alert answering questions appropriately moving all 4 extremities Test Results: [] Emergency Department Course and Treatment: [] Plan all of the above to the patient I explained her that she is she is just been on the antibiotic for 1 dose this is not long enough to determine effectiveness of course of therapy which appears appropriate, she is to continue all the medications prescribed the other day at the urgent care and follow-up with surgery as instructed sitz bath and return for change in symptoms Treatment Plan: [] Disposition: [] Home stable Impression: [] Buttock irritation, left, history of pilonidal cyst resection This note was generated with [employer] dictation software. It may contain incorrect words, spelling, and punctuation that were not noted in review of the chart prior to signing ED Disposition - Plan for ED Patient: Referrals: Laureano Chaparro MD [Primary Care Provider] -
--- NOTE | 2018-05-04 09:18 | ED.DEP ---
ED Disposition - Plan for ED Patient: Instructions: ED Infec Skin Cellulitis Referrals: Laureano Chaparro MD [Primary Care Provider] - Additional Instructions: Continue the medications you were prescribed and follow-up with Dr. Peter and all of your outpatient providers as scheduled to soon as possible
== END 2018-05-04 09:57 | disposition home or self-care (01) ==
LOC: ED 09:31
PROVIDERS: Emergency Provider Emergency Medicine; Family Provider Family Medicine; PCP Family Medicine
DX: M54.89 Other dorsalgia (principal)
CPT/HCPCS: 99282

== ENCOUNTER 2018-10-31 11:36 | Emergency (ER) | payer OTHER, SELFPAY ==
[2018-10-31 11:36] VITALS: BP 105/79; PULSE 67; RESP 16; TEMP 36.1; O2SAT 98; BMI 30.4
[2018-10-31 12:06] LABS: Mucous, Urine 0 SEEN /hpf (<or=2+); Red Blood Cells-Urine 0 SEEN /hpf (0-5)
[2018-10-31] MEDS: Ketorolac 30 MG/ML Syringe IV (12:12)
[2018-10-31 12:20] LABS: Absolute Lymphocyte Count 1.81 X10^3/uL (0.83-4.51); Absolute Neutrophil Count 5.2 X10^3/uL (2.0-7.7); Basophil# 0.03 X10^3/uL; Basophil% 0.4 % (0-1); Eosinophil# 0.11 X10^3/uL; Eosinophils% 1.4 % (0-5); Hematocrit 33.2 % (37-47); Hemoglobin 10.9 g/dL (12.0-15.0); Lymphocyte # 1.81 X10^3/ul (4.0); Lymphocyte % 23.7 % (19-41); Mean Corp Hgb Conc 32.8 g/dL (32-36); Mean Corpuscular Volume 85.3 fL (81-99); Mean Platelet Vol. 9.9 fl (6.2-12.0); Monocyte# 0.52 X10^3/uL; Monocyte% 6.8 % (0-10); NRBC Flagged by Analyzer 0 % (0-5); Neutrophil # 5.15 X10^3/uL (2.7-7.7); Neutrophil % 67.4 % (47-70); Platelet Count 292 K/mm3 (150-450); RBC Distribution Width CV 14.2 % (11.6-14.6); RBC Distribution Width SD 43.9 fl (35.1-43.9); Red Blood Count 3.89 M/mm3 (4.2-5.4); White Blood Count 7.6 K/mm3 (4.4-11.0)
[2018-10-31] MEDS: 0.9% Normal Saline 1,000 ML 125 ML IV (12:23)
[2018-10-31 12:32] LABS: Anion Gap 5 (5-15); BUN 16 mg/dL (7-18); BUN/Creat Ratio 26.7 RATIO (10-20); Calcium,Total 8.2 mg/dL (8.5-10.1); Chloride 109 mmol/L (98-107); EST Glomerular Filtration Rate 128 mL/min (>60); Est Glom Filt Rate - Afr Amer 155 mL/min (>60); Estimated Creatinine Clearance 153.63 ml/min; Glucose 84 mg/dL (74-106); Potassium 3.5 mmol/L (3.5-5.1); Sodium Level 141 mmol/L (136-145)
[2018-10-31 12:39] LABS: Internal QC Validated? YES +Cl - CLEAR BKGD
[2018-10-31 12:42] LABS: Color, Urine Yellow (Yellow); Glucose, Dipstick Normal (Normal); Ketone-Dipstick Negative (Negative); Leukocyte Esterase-Dipstick 25 /ul (Negative); Nitrite-Dipstick Negative (Negative); Occult Blood-Urine 50 /ul (Negative); Protein-Dipstick 15 mg/dl (Negative); Urine Bilirubin Dipstick Negative (Negative); Urine Clarity Cloudy (Clear); Urine Urobilinogen Normal (Normal)
[2018-10-31 12:43] LABS: Pregnancy, Serum, hCG Quali. NEGATIVE Negative
[2018-10-31 12:44] LABS: Squamous Epithelial Cells - UA 10-25 SEEN /hpf (5-10)
[2018-10-31 12:45] LABS: Bacteria 1+ /hpf (None Seen); White Blood Cells 0-5 SEEN /hpf (0-5)
--- NOTE | 2018-10-31 12:55 | CT_ITS ---
STUDY: CT ABDOMEN AND PELVIS WITHOUT CONTRAST REASON FOR EXAM: Female, 28 years old. One week history of pelvic pain. RADIATION DOSAGE (If Supplied By Facility): CTDIvol = ( 12.42 ) mGy, DLP = ( 593.85 ) mGycm TECHNIQUE: Transaxial images were obtained from the dome of the diaphragm to the symphysis pubis without oral contrast, and without intravenous contrast. Sagittal and coronal images were reconstructed. Individualized dose optimization techniques were used for this CT. COMPARISON: Comparison is made with prior study dated February 14, 2018. FINDINGS: The visualized lung bases are unremarkable. The visualized portions of the heart are within normal limits. Normal liver. There are surgical clips in the gallbladder fossa consistent with a prior cholecystectomy. Normal spleen. Normal pancreas. Normal bilateral adrenal glands. Normal right kidney. Normal left kidney. Normal visualized stomach. Normal small intestine. Normal colon. The appendix is visualized and appears normal. Normal abdominal aorta. Normal inferior vena cava. There is borderline retroperitoneal lymphadenopathy with enlarged nodes no greater than 10mm in the short axis diameter. Normal urinary bladder. Phleboliths are seen within the pelvis. Small follicles are seen in the right ovary. Normal abdominal wall. Normal osseous structures. CT/Abdomen/Pelvis without Cont IMPRESSION: Normal unenhanced CT of the abdomen and pelvis. Status post cholecystectomy. Electronically Signed: Christophe Rojas, at 13:23 EDT , Service support ,
--- NOTE | 2018-10-31 13:37 | ED.VISSUMM ---
- ER Visit Summary Date of Service: 10/31/18 Chief Complaint: [Abdominal pain] History of Present Illness: The patient is a 28 F [presents to the emergency department with complaint of abdominal pain that started 4 days ago. Patient states she is a continuous cramping she rates it up to a 7 out of 10. Ibuprofen has not helped much. Patient also has been late on her menstrual period and took a home test yesterday was negative. Patient states the pain feels like period cramps. She denies any abnormal vaginal discharge or bleeding. She has had some mild nausea but no vomiting. She denies any diarrhea or blood in her stool.] Physical Examination: [HEENT-PERRLA, EOMI. Cranial nerves II through XII grossly intact. TMs clear. Mucous membranes moist. No adenopathy. Cardiovascular-regular rate and rhythm without murmur or ectopy Lungs-clear to auscultation, chest wall stable without crepitus or subcu emphysema Abdomen-normoactive bowel sounds, soft. Patient has tenderness palpation of the right lower quadrant and suprapubic region. There is no rebound, rigidity, cranial signs. Extremities-intact ?4, normal range of motion, normal pulses, atraumatic] Test Results: [CBC with differential showed a white count of 7.6, hemoglobin 10.9, hematocrit 33, platelet 242. Chemistries unremarkable. Urinalysis normal. hCG was negative. CT flank showed nothing acute.] Emergency Department Course and Treatment: [Received Toradol and she had some pain improvement with that. At this point she does not waiting more for pain.] Treatment Plan: [Patient to follow-up with her primary care physician or RAIL SWITCH OPERATOR within the next 3 to 5 days. Patient advised to return if fever, vomiting, or conditions worsen anyway.] Disposition: [Discharged home in stable condition.] Impression: [Manuel pain-etiology uncertain] This note was generated with [employer] dictation software. It may contain incorrect words, spelling, and punctuation that were not noted in review of the chart prior to signing ED Disposition - Plan for ED Patient: Referrals: Laureano Chaparro MD [Primary Care Provider] -
--- NOTE | 2018-10-31 13:39 | DCINST.ED_ITS ---
ED Disposition - Plan for ED Patient: Instructions: ABDOMINAL PAIN, Unknown Cause, (Female) Referrals: Laureano Chaparro MD [Primary Care Provider] - 3-5 Days Additional Instructions: see your PORTABLE MACHINE CUTTER
[2018-10-31 13:44] VITALS: RESP 16
[2018-10-31 13:51] VITALS: BP 107/70; PULSE 83; RESP 16; O2SAT 100
--- NOTE | 2018-10-31 13:52 | ED.RN ---
REVIEWED D/C INSTRUCTIONS, FOLLOW UP CARE, AND S/S THAT WOULD WARRANT A RETURN TO THE ED WITH PT. PT VERBALIZED AN UNDERSTANDING AND DENIES FURTHER QUESTIONS FOR THIS RN. PT SKIN P/W/D, RESP EVEN AND UNLABORED, PT A&O X 3, NO DISTRESS NOTED. PT AMBULATED OUT OF ED, GAIT STEADY.
== END 2018-10-31 13:55 | disposition home or self-care (01) ==
PROVIDERS: Emergency Provider Emergency Medicine; Family Provider Family Medicine; PCP Family Medicine
DX: R10.9 Unspecified abdominal pain (principal); Z90.49 Acquired absence of other specified parts of digestive tract
CPT/HCPCS: 74176; 80048; 81001; 84703; 85025; 99283; J7030; A4216

== ENCOUNTER → 2019-12-01 | Outpatient (CLI) | payer OTHER, SELFPAY ==
--- NOTE | 2019-12-01 09:30 | RAD_ITS ---
STUDY: CHECK CONTRAST UPPER GI SERIES AND SMALL BOWEL FOLLOW-THROUGH EXAMINATION. REASON FOR EXAM: Female, 29 years old. NAUSEA AND DYSPHAGIA X 3 WEEKS. SHARP PAIN IN THE EPIGASTRIC REGION. HX OF HIATAL HERNIA AND CHOLECYSTECTOMY. FLUOROSCOPY TIME (if supplied): ( 1 minute and 40 seconds ) minutes/seconds. 15 images were obtained. TECHNIQUE: The patient ingested barium. Multiple images of the esophagus, stomach and duodenum were obtained. Following this, a small bowel follow-through examination was obtained. COMPARISON: None. FINDINGS: The esophagus is unremarkable. There is no evidence of obstruction. No mass lesion is seen. The stomach and duodenum are unremarkable. There is no evidence of ulceration. The small bowel transit is normal. There is no evidence of intrinsic or extrinsic small bowel disease. The terminal ileum is unremarkable. RAD/Upper GI/w Small Bowel IMPRESSION: Unremarkable air contrast upper GI series and small bowel follow-through examination. Electronically Signed: Christophe Rojas, at 12:44 EDT , Service support ,
== END | disposition home or self-care (01) ==
LOC: RAD 09:26
PROVIDERS: PCP Family Medicine; Referring Provider Nurse Practitioner Adult Health; Visit Provider Nurse Practitioner Adult Health
DX: R10.9 Unspecified abdominal pain (principal); R11.0 Nausea
CPT/HCPCS: 74246; 74248

== ENCOUNTER 2020-04-27 12:35 | Emergency (ER) | payer OTHER, SELFPAY ==
[2020-04-27 12:36] VITALS: BP 110/79; PULSE 86; RESP 17; TEMP 35.7; O2SAT 100; BMI 33.8
[2020-04-27 12:47] VITALS: BP 126/69; PULSE 90; RESP 14; O2SAT 100
--- NOTE | 2020-04-27 13:12 | ED.VIS.GEN ---
History of Present Illness Chief Complaint: Abd Pain Informant: Patient Narrative: 30-year-old female presenting with umbilical pain. Symptoms began on Saturday and progressively got worse. She went to urgent care was advised to come here out of concern for a umbilical hernia. Denies any drainage from the umbilicus she denies any fevers. Past Medical History - Allergies and Home Meds Allergies/Adverse Reactions: Allergies miconazole Allergy (Verified 04/27/20 12:39) Rash Primary Care Physician: Laureano Chaparro MD [Primary Care Provider] - As Needed Surgical History: cholecystectomy, - - Status post infected cyst removal in the coccygeal region Smoking Status: Never smoker Drugs: None - Family History Maternal Family History: Reports: Unknown Paternal Family History: Reports: Heart Disease, - - history of blood clots Review of Systems General: Denies: Chills, Fever, Sweats Eyes: Denies: Visual changes - bilaterally, Diplopia ENT: Denies: Rhinorrhea, Sore throat Cardiovascular: Denies: Chest pain, Palpitations Respiratory: Denies: Dyspnea, Cough, Dyspnea on exertion Gastrointestinal: Reports: Abdominal pain. Denies: Nausea, Vomiting, Diarrhea, Melena, Hematochezia Genitourinary: Denies: Dysuria, Hematuria, Frequency Musculoskeletal: Denies: Back pain, Extremity Pain Skin: Denies: Rash, Wounds Neurological: Denies: Headache, Weakness, Numbness Physical Exam Vital Signs/Narrative: Vital Signs Temp Pulse Resp BP Pulse Ox 04/27/20 12:47 90 14 126/69 H 100 04/27/20 12:36 96.2 F L 86 17 110/79 100 Inital Vital Signs reviewed: Yes General: Well nourished, Well developed, No Acute Distress Head: Normocephalic, Atraumatic Eyes: Perrl, EOMI ENT: Moist mucous membranes, No rhinorrhea Neck: Supple, Nontender Cardiovascular: Regular rate, Regular rhythm, No murmurs Respiratory: No distress, CTA bilaterally, Chest nontender Abdomen: Soft, Nondistended, Normal bowel sounds, - - There is no evidence of hernia. There is a small localized swelling in the umbilicus consistent with a localized infection.. Negative for: Hernia irreducible Back: Nontender, Normal Inspection Extremities: Nontender, No edema Skin: Normal color, No rash Neurological: Alert, Oriented x3, Cranial nerves II-XII grossly intact, Normal Strength, Normal Sensation Psychological: Normal affect, Normal Mood Diagnostic/Tx/Re-eval - Medical Decision Making Patient was started with Bactrim. Instructions to clean the umbilicus with hydrogen peroxide or soapy water and some antibiotic ointment using a Q-tip. If recurrence would recommend surgical follow-up for possible urachal cyst. ED Disposition - Plan for ED Patient: Disposition: Home or Assisted Living Diagnosis: Omphalitis Prescriptions: Smz/Tmp Ds [Bactrim Ds] 1 tab PO BID #14 tab Prescription Printed Referrals: Laureano Chaparro MD [Primary Care Provider] - As Needed Additional Instructions: Clean the area with good soap and water and Q-tip. You may also use hydrogen peroxide. Apply some triple antibiotic ointment.
[2020-04-27 13:44] VITALS: BP 102/70; PULSE 90; RESP 15; O2SAT 99
== END 2020-04-27 13:45 | disposition home or self-care (01) ==
LOC: ED 13:27
PROVIDERS: Emergency Provider Emergency Medicine; PCP Family Medicine
DX: L08.82 Omphalitis not of newborn (principal)
CPT/HCPCS: 99282

== ENCOUNTER 2023-05-15 13:39 | Emergency (ER) | payer OTHER, SELFPAY ==
[2023-05-15 13:40] VITALS: BP 107/75; PULSE 103; RESP 16; TEMP 36.4; O2SAT 100; BMI 39.3
--- NOTE | 2023-05-15 13:45 | NURSING ---
1327 CALLED [facility], ETA IS 20 TO 30 MIN
--- NOTE | 2023-05-15 13:48 | EDS_ITS ---
HPI HPI - Female History of Present Illness Chief Complaint: Informant: patient Narrative Narrative: Patient sent from [facility] CLIENT SUPPORT ASSOCIATE office secondary to ectopic and needing emergent transfer to [facility]. Patient states she started having abdominal pain last Saturday, May 10. She took a home test that was positive. She was seen at [facility] emergency room and did have positive quants. She went back to the ED secondary to some mild spotting and noted that her quant's were dropping. They told her that she was likely having a miscarriage and to continue supportive care. Given continued pain she went to an emergency room in [place]. They again did blood work and told her that her quant's were dropping but did not do an ultrasound. Patient was seen at [facility] in [place] today where an ultrasound was performed and reveals possible ectopic . Patient was discussed with high school special education teacher/GYN at [facility]. She would like to do her own ultrasound [facility] Medical History (Updated 05/01/23 @ 14:[address] Radha Petty MD) Emotional problems H/O pilonidal cyst Vision problems Home Medications escitalopram oxalate 10 mg tablet (Lexapro) 10 mg PO DAILY 05/01/23 [History Last Taken Unknown] Allergy/AdvReac Type Severity Reaction Status Date / Time miconazole Allergy Rash Verified 05/15/23 13:40 Family History (Updated 05/01/23 @ 14:17 by Belinda Olvera) Mother Anxiety Father Asthma Bleeding disorder blood clots Surgical History (Updated 05/01/23 @ 14:16 by Belinda Olvera) History of cholecystectomy Social History (Updated 05/01/23 @ 14:18 by Belinda Olvera) Smoking Status: Never smoker alcohol intake: never substance use type: does not use additional social history: pt denies smoking, pt denies vaping, denies marijuana use, denies edibles, denies illegal drugs pt takes aspirin and Ibuprofen as needed. EXAM Physical Exam Const Vital Signs: 05/15/23 13:40 Temperature 97.6 F L Temperature Source Temporal Pulse Rate 103 H Respiratory Rate 16 Blood Pressure 107/75 Blood Pressure Mean 85 Pulse Ox 100 Oxygen Delivery Method Room Air Discharge Plan Triage Chief Complaint: ED Provider: Sunita Carpio Dx/Rx/DC Orders Prescriptions: No Action escitalopram oxalate [Lexapro] 10 mg tablet 10 mg PO DAILY Primary Care Provider: Laureano Chaparro Referrals: Laureano Chaparro MD [Primary Care Provider] -
--- NOTE | 2023-05-15 13:48 | ED.VIS.FEGU ---
HPI HPI - Female History of Present Illness Chief Complaint: Informant: patient Narrative Narrative: Patient sent from [facility] office secondary to ectopic and needing emergent transfer to [facility]. Patient states she started having abdominal pain last Saturday, May 10. She took a home test that was positive. She was seen at [place] emergency room and did have positive quants. She went back to the ED secondary to some mild spotting and noted that her quant's were dropping. They told her that she was likely having a miscarriage and to continue supportive care. Given continued pain she went to an emergency room in [place]. They again did blood work and told her that her quant's were dropping but did not do an ultrasound. Patient was seen at [facility] in [place] today where an ultrasound was performed and reveals possible ectopic . Patient was discussed with high lift operator/GYN at [facility]. She would like to do her own ultrasound I would like her transported to [place] as soon as possible. [employer] office was unable to get transport willing to take her to [place] that she was sent to the emergency room. I received a call ahead of the patient's arrival. We were able to arrange transport to be here shortly after the patient arrived. [facility] Medical History Emotional problems H/O pilonidal cyst Vision problems Home Medications NK 05/15/23 [History Last Taken Unknown] Allergy/AdvReac Type Severity Reaction Status Date / Time miconazole Allergy Rash Verified 05/15/23 13:40 Family History Mother Anxiety Father Asthma Bleeding disorder blood clots Surgical History History of cholecystectomy Social History household members: significant other housing: apartment Smoking Status: Never smoker alcohol intake: never substance use type: does not use additional social history: pt denies smoking, pt denies vaping, denies marijuana use, denies edibles, denies illegal drugs pt takes aspirin and Ibuprofen as needed. ROS ROS ED Constitutional Constitutional ED: Denies chills or fever(s) Eyes Eyes: Denies discharge from eye(s) ENT ENT ED: Denies discharge from eye(s), rhinorrhea or sore throat Cardiovascular Cardiovascular: Denies chest pain or palpitations Respiratory/Chest Respiratory/Chest: Denies cough or dyspnea Gastrointestinal Gastrointestinal: Reports abdominal pain; Denies diarrhea, nausea or vomiting Genitourinary Genitourinary ED: Denies dysuria Musculoskeletal Musculoskeletal: Denies back pain or extremity pain Integumentary Denies Abrasions or rash Neurologic Neurologic: Denies headache(s) or weakness Psychiatric Psychiatric: Denies anxiety or depression Allergic/Immunologic Allergic/Immunologic ED: Denies lip swelling or urticaria EXAM Physical Exam Const Vital Signs: 05/15/23 13:40 Temperature 97.6 F L Temperature Source Temporal Pulse Rate 103 H Respiratory Rate 16 Blood Pressure 107/75 Blood Pressure Mean 85 Pulse Ox 100 Oxygen Delivery Method Room Air Positive well nourished and well developed General Appearance ED: well developed HEENT Reports moist mucous membranes Eyes EOMs intact bilaterally Chest Wall inspection of chest normal and palpation of chest normal Resp normal respiratory effort and clear to auscultation bilaterally Cardio regular rate and regular rhythm GI GI Narrative: Abdomen soft with mild tenderness in the lower abdominal area. No guarding or rebound. Extremity normal to inspection Neuro oriented x3 and no sensory deficits noted Motor Exam: strength 5/5 throughout Psych mental status grossly normal Skin no rashes or lesions noted MDM MDM MDM Narrative Medical decision making narrative: Patient's lab work is already been completed at outside facility. Patient is stable on arrival here. Transport to take her to [place] arrived approximately 10 minutes after the patient arrived. Discharge Plan Triage Chief Complaint: ED Provider: Sunita Carpio Dx/Rx/DC Orders Clinical Impression: Ectopic Prescriptions: No Action NK Primary Care Provider: Milena Herring Referrals: Laureano Chaparro MD [Non-Staff] - Disposition Disposition: Acute Care Hospital Discharge Location: [facility]
[2023-05-15 13:57] VITALS: BP 95/71; PULSE 102; RESP 16; TEMP 36.6; O2SAT 100
== END 2023-05-15 14:10 | disposition short-term general hospital (02) ==
PROVIDERS: Emergency Provider Emergency Medicine; PCP Internal Medicine; Visit Provider Emergency Medicine
DX: O00.90 Unspecified ectopic pregnancy without intrauterine pregnancy (principal)
CPT/HCPCS: 99284; J7030

== ENCOUNTER → 2023-07-08 | Outpatient (CLI) | payer OTHER, SELFPAY ==
--- NOTE | 2023-07-08 16:32 | MRI_ITS ---
EXAM: MR RIGHT LOWER EXTREMITY WITHOUT AND WITH INTRAVENOUS CONTRAST, KNEE CLINICAL INDICATION: mri w and w/o contrast Right knee area-soft tissue TECHNIQUE: Multiplanar and multisequence MR images of the right knee without and with intravenous contrast. CONTRAST: 15 CC IV CLARISCAN COMPARISON: No relevant prior studies available. FINDINGS: BONES/JOINTS: Focal edema at the superolateral aspect of Hoffa''s fat can be seen with altered patellar tracking. No fracture. No synovial hypertrophy. No intra-articular body. EXTENSOR MECHANISM: Unremarkable. MEDIAL MENISCUS: Unremarkable. LATERAL MENISCUS: Unremarkable. MEDIAL CAPSULE/SUPPORTING STRUCTURES: Unremarkable. Intact. LATERAL CAPSULE/SUPPORTING STRUCTURES: Unremarkable. Lateral collateral ligamentous complex, inclusive of the popliteal tendon, are intact. ANTERIOR CRUCIATE LIGAMENT: Unremarkable. Intact. POSTERIOR CRUCIATE LIGAMENT: Unremarkable. Intact. MUSCLES: Unremarkable. CARTILAGE: Unremarkable. Intact. FLUID: Unremarkable. No joint effusion. OTHER SOFT TISSUES: Subcutaneous edema anterior to the patella. No popliteal cyst. MRI/Lower Ext Joint Only W/WO Cont IMPRESSION: 1. Small focus of fluid along the anteromedial aspect of the joint line. 2. Focal edema at the superolateral aspect of Hoffa''s fat can be seen with altered patellar tracking. 3. No other significant internal derangement of the knee. Electronically Signed: Thomas Carreon MD at 21:33 EDT ,
== END | disposition home or self-care (01) ==
LOC: MRI 16:16
PROVIDERS: PCP Internal Medicine; Visit Provider Plastic Surgery
DX: D48.19 Other specified neoplasm of uncertain behavior of connective and other soft tissue (principal); M79.604 Pain in right leg
CPT/HCPCS: 73723; A9575

== ENCOUNTER 2024-01-31 12:14 | Emergency (ER) | payer OTHER, SELFPAY ==
[2024-01-31 12:14] VITALS: BP 124/75; PULSE 76; RESP 16; TEMP 36.3; O2SAT 100; BMI 37.2
--- NOTE | 2024-01-31 12:32 | EX.ED.DYSGE1 ---
HPI History of Present Illness Chief Complaint: Flank Pain Narrative Narrative: Patient is a 33-year-old female who is presenting to the ER today with chief complaint of left lower thoracic pain. Patient stated the pain started while she was at work. Patient had no type of injury, no heavy lifting, twisting or turning that would have started her symptoms. No urinary frequency urgency or burning. Patient has inflammatory chronic disease where she has a specialist at the [facility] for. Patient cannot take anti-inflammatories. Patient has no kidney stone history, no other acute complaints. No chest pain, shortness of breath, fever, chills. No urinary frequency urgency or burning. No vaginal complaints. No new radiation of pain or paresthesias down into lower extremities. [facility] Medical History (Updated 01/31/24 @ 14:[address] Blas James DO) H/O pilonidal cyst Vision problems Emotional problems Home Medications ?Medication ?Instructions ?Recorded ?Last Taken ?Type amoxicillin 500 mg capsule 500 mg PO TID 07/17/23 Unknown History ibuprofen 200 mg capsule 200 mg PO Q6H PRN 07/17/23 Unknown History prednisone 5 mg tablets in a dose 5 mg PO DIRECTED 07/17/23 Unknown History pack methocarbamol 500 mg tablet 500 mg PO Q8H PRN muscle pain #10 01/31/24 Unknown Rx tabs Allergy/AdvReac Type Severity Reaction Status Date / Time miconazole Allergy Rash Verified 01/31/24 12:17 Family History Mother Anxiety Father Asthma Bleeding disorder blood clots Surgical History History of wisdom tooth extraction History of cholecystectomy Social History household members: significant other housing: apartment Smoking Status: Never smoker alcohol intake: never substance use type: does not use additional social history: pt denies smoking, pt denies vaping, denies marijuana use, denies edibles, denies illegal drugs pt takes aspirin and Ibuprofen as needed. ROS ROS ED ROS Narrative REVIEW OF SYSTEMS: Unless otherwise stated in this report the patient's positive and negative responses for review of systems for constitutional, eyes, ENT, cardiovascular, respiratory, gastrointestinal, neurological, , musculoskeletal, and integument systems and related systems to the presenting problem are either stated in the history of present illness or were not pertinent or were negative for the symptoms and/or complaints related to the presenting medical problem. EXAM Physical Exam Narrative Exam Narrative: Vital signs reviewed and patient is not hypoxic. General: The patient appears well and in no apparent distress. Patient is resting comfortably on cart. Not toxic, lethargic, or listless. Skin: Warm, dry, no pallor noted. There is no rash noted. Head: Normocephalic, atraumatic Eye: Normal conjunctiva, no drainage, EOMI. PERRL. Ears, Nose, Mouth, and Throat: oral mucosa is moist. Nares patent. Mouth without vesicles. Cardiovascular: Regular Rate and Rhythm, no murmurs, gallops, or rubs Respiratory: Patient is in no distress, no accessory muscle use, lungs are clear to auscultation, no wheezing, rales or rhonchi Back: Patient has mild to moderate tenderness to palpation to the left parathoracic lower area from approximately T8-T12, no rash, there is soft tissue bogginess, no palpable abscess, no skin changes, no redness or cellulitis. Non-tender, no CVA tenderness bilaterally to percussion. NO CTLS midline or paraspinal tenderness to palpation. Negative straight leg raising test bilateral. GI: Soft, no tenderness to palpation, no masses appreciated. No rebound, guarding, or rigidity noted. Patient has no tenderness to palpation to bilateral flank. No suprapubic tenderness to palpation. Musculoskeletal: The patient has full range of motion of all extremities and joints with no difficulty. Patient has no motor, no sensory deficits. Neurological: A&O x4, normal speech, no focal neurological deficits. Psychiatric: Cooperative Const Vital Signs: 01/31/24 12:14 Temperature 97.4 F L Temperature Source Oral Pulse Rate 76 Respiratory Rate 16 Blood Pressure 124/75 H Blood Pressure Mean 91 Pulse Ox 100 Oxygen Delivery Method Room Air MDM MDM MDM Narrative Medical decision making narrative: Patient was given Tylenol along with ice. Patient cannot take anti-inflammatories. Education using ice, stretching was discussed at bedside. Work note was given. Patient looks well. No questions at discharge. Lab Data Attestation: I reviewed the patient's lab results. Labs: Laboratory Results - last 24 hr 01/31/24 01/31/24 13:30 13:35 WBC 8.1 RBC 4.29 Hgb 11.1 L Hct 35.8 L MCV 83.4 MCH 25.9 L MCHC 31.0 L RDW Std Deviation 44.5 H RDW Coeff of Kevin 14.7 H Plt Count 348 MPV 10.1 Immature Gran % (Auto) 0.200 Neut % (Auto) 66.8 Lymph % (Auto) 22.9 [place] % (Auto) 7.6 Eos % (Auto) 2.1 Baso % (Auto) 0.4 Absolute Neuts (auto) 5.4 Absolute Lymphs (auto) 1.85 Nucleated RBC % 0 Sodium 140 Potassium 3.8 Chloride 107 Carbon Dioxide 28.0 Anion Gap 5 BUN 10 Creatinine 0.55 Estim Creat Clear Calc 139.43 Est GFR (MDRD) Af Amer 166 Est GFR (MDRD) Non-Af 137 BUN/Creatinine Ratio 18.3 Glucose 88 Calcium 8.9 Total Bilirubin 0.20 AST 13 L ALT 26 Alkaline Phosphatase 63 Total Protein 7.6 Albumin 3.3 Globulin 4.3 H Albumin/Globulin Ratio 0.8 L Lipase 30 Urine Color Yellow Urine Clarity Sl. Cloudy Urine pH 7.0 Ur Specific [place] 1.010 Urine Protein Negative Urine Glucose (UA) Normal Urine Ketones Negative Urine Occult Blood Negative Urine Nitrite Negative Urine Bilirubin Negative Urine Urobilinogen Normal Ur Leukocyte Esterase Negative Urine RBC 0 SEEN Urine WBC 0 SEEN Ur Squamous Epith Cells 0-5 SEEN Ur Transition Epith Cell 0-5 SEEN Urine Bacteria 0 SEEN Urine Mucus 0 SEEN Urine Test Negative Discharge Plan Triage Chief Complaint: Flank Pain ED Provider: Blas James Dx/Rx/DC Orders Clinical Impression: Left-sided thoracic back pain Instructions: Back Safety: Lifting, ED Back Care Tips Prescriptions: New methocarbamol 500 mg tablet 500 mg PO Q8H PRN (Reason: muscle pain) Qty: 10 0RF No Action amoxicillin 500 mg capsule 500 mg PO TID ibuprofen 200 mg capsule 200 mg PO Q6H PRN prednisone 5 mg tablets,dose pack 5 mg PO DIRECTED Rx Instructions: see taper instructions Stand Alone Forms: ED Work / School Excuse Primary Care Provider: Milena Herring Referrals: Milena Herring MD [Primary Care Provider] - Activity Restrictions/Additional Instructions: Use ice 20 minutes on, 20 minutes off. Do not use heat. Use Tylenol every 4 hours as needed for pain. Perform stretching exercises 3-4 times a day. Work note and restrictions given. If no improvement next week, follow-up with PCP for formal physical therapy as needed. Use muscle relaxer as needed, muscle relaxers will not fix the pain. Ice and stretching will help symptoms get better. Print Language: Trinidadian Disposition Disposition: Home, Self Care
[2024-01-31] MEDS: Acetaminophen 325 MG Tablet 650 MG PO (13:43)
[2024-01-31 13:48] LABS: Bacteria 0 SEEN /hpf (None Seen); Mucous, Urine 0 SEEN /hpf (<or=2+); Red Blood Cells-Urine 0 SEEN /hpf (0-5); White Blood Cells 0 SEEN /hpf (0-5)
[2024-01-31 13:51] LABS: Color, Urine Yellow (Yellow); Glucose, Dipstick Normal (Normal); Ketone-Dipstick Negative (Negative); Leukocyte Esterase-Dipstick Negative /ul (Negative); Nitrite-Dipstick Negative (Negative); Occult Blood-Urine Negative /ul (Negative); Protein-Dipstick Negative (Negative); Urine Bilirubin Dipstick Negative (Negative); Urine Clarity Sl. Cloudy (Clear); Urine Urobilinogen Normal (Normal)
[2024-01-31 13:55] LABS: Absolute Lymphocyte Count 1.85 X10^3/uL (0.83-4.51); Absolute Neutrophil Count 5.4 X10^3/uL (2.0-7.7); Basophil# 0.03 X10^3/uL; Basophil% 0.4 % (0-1); Eosinophil# 0.17 X10^3/uL; Eosinophils% 2.1 % (0-5); Hematocrit 35.8 % (37-47); Hemoglobin 11.1 g/dL (12.0-15.0); Lymphocyte # 1.85 X10^3/ul (0.83-4.51); Lymphocyte % 22.9 % (19-41); Mean Corpuscular Hgb 25.9 pg (27.0-32.0); Mean Corpuscular Volume 83.4 fL (81-99); Mean Platelet Vol. 10.1 fl (6.2-12.0); Monocyte# 0.61 X10^3/uL; Monocyte% 7.6 % (0-10); NRBC Flagged by Analyzer 0 % (0-5); Neutrophil # 5.39 X10^3/uL (2.7-7.7); Neutrophil % 66.8 % (47-70); Platelet Count 348 K/mm3 (150-450); RBC Distribution Width CV 14.7 % (11.6-14.6); RBC Distribution Width SD 44.5 fl (35.1-43.9); Red Blood Count 4.29 M/mm3 (4.2-5.4); White Blood Count 8.1 K/mm3 (4.4-11.0)
[2024-01-31 14:01] LABS: Squamous Epithelial Cells - UA 0-5 SEEN /hpf (5-10); Transitional Epithelial - Ur 0-5 SEEN /hpf (0-5)
[2024-01-31 14:02] LABS: Internal QC Validated? YES +Cl - CLEAR BKGD; Pregnancy, Urine Negative Negative
[2024-01-31 14:12] LABS: ALB/GLOB Ratio 0.8 RATIO (0.9-2.4); AST(SGOT) 13 U/L (15-37); Alanine Aminotransfer ALT/SGPT 26 U/L (13-56); Albumin, Serum 3.3 g/dL (3.2-5.0); Alkaline Phosphatase 63 U/L (45-117); Anion Gap 5 (5-15); BUN 10 mg/dL (7-18); BUN/Creat Ratio 18.3 RATIO (10-20); Calcium,Total 8.9 mg/dL (8.5-10.1); Chloride 107 mmol/L (98-107); Creatinine, Serum 0.55 mg/dL (0.55-1.02); EST Glomerular Filtration Rate 137 mL/min (>60); Est Glom Filt Rate - Afr Amer 166 mL/min (>60); Estimated Creatinine Clearance 139.43 ml/min; Globulin 4.3 g/dL (2.2-4.2); Glucose 88 mg/dL (74-106); Lipase 30 U/L (13-75); Potassium 3.8 mmol/L (3.5-5.1); Protein, Total 7.6 g/dL (6.4-8.2); Sodium Level 140 mmol/L (136-145)
[2024-01-31 14:14] VITALS: BP 102/56; PULSE 92; RESP 16; O2SAT 98
[2024-01-31 14:44] VITALS: BP 102/56; PULSE 92; RESP 16; TEMP 36.8; O2SAT 98
== END 2024-01-31 14:53 | disposition home or self-care (01) ==
PROVIDERS: Emergency Provider Emergency Medicine; PCP Internal Medicine; Referring Provider Emergency Medicine; Visit Provider Emergency Medicine
DX: M54.6 Pain in thoracic spine (principal); R10.9 Unspecified abdominal pain
CPT/HCPCS: 80053; 81001; 81025; 83690; 85025; 99283; A4216